=== PATIENT | female | born 1980 | race Caucasian/White ===

== ENCOUNTER 2018-12-14 20:45 | Emergency (ER) | payer BC ==
[~2018-12-14] VITALS: Ht 175.3 cm; Wt 129.3 kg
[2018-12-14] MEDS ORDERED: DIAZEPAM 2 MG TAB PO ONE (21:00)
[2018-12-14] MEDS ORDERED: KETOROLAC TROMETHAMINE 60 MG/2 ML VIAL IM ONE (21:15)
[2018-12-14] MEDS ORDERED: DIAZEPAM 5 MG TAB PO ONE (21:15)
--- NOTE | 2018-12-14 22:12 | Diagnostic Imaging Report ---
EXAMINATION: RIBS BILAT W/CXR INDICATION: Hurt back, pain, cough COMPARISON: None FINDINGS: TUBES and LINES: None. LUNGS: Lungs are well inflated. Mild left basilar atelectasis or scarring. There is no evidence of pneumonia or pulmonary edema. PLEURA: No pleural effusion or pneumothorax. HEART AND MEDIASTINUM: The cardiomediastinal silhouette is unremarkable. BONES AND SOFT TISSUES: No acute osseous lesion. Soft tissues are unremarkable. UPPER ABDOMEN: No free air under the diaphragm. IMPRESSION: No acute thoracic abnormality. Signed by: DR. Artie Childers MD on 12/14/2018 10:08 PM
--- NOTE | 2018-12-14 22:26 | NUR ---
patient informed of risk of toradol and fetus contraindication. patient states she is under murina iud control and is not active sexually, patient states she is not or under risk of being . patient informed in full of risks, patient wants to have toradol i.m. administered.
[2018-12-14] MEDS ORDERED: ROBAXIN-750750 MG PO (23:36)
[2018-12-14] MEDS ORDERED: NAPROXEN250 MG PO (23:37)
[2018-12-14] MEDS ORDERED: ULTRAM50 MG PO (23:37)
[2018-12-15] MEDS ORDERED: LIDOCAINE 5% PATCH TP SCH (00:45)
[2018-12-15] MEDS ORDERED: LIDOCAINE 5% PATCH TP ONE (00:45)
[2018-12-15 01:26] VITALS: BP 122/78
--- NOTE | 2018-12-16 16:01 | NUR ---
ACCESSED PATIENT CHART TO ADDRESS MEDICATION ISSUE RECEIVED CALL FROM [facility] REGARDING PATIENTS NAPROXEN 250 MG PO EVERY 4HRS PRN. SPOKE WITH DR. PERKINS, AND DOSAGE FREQUENCY WAS CHANGED TO EVERY 6 HRS PRN. SPOKE WITH PHARMACIST , ZACHARY
== END 2018-12-15 01:29 | disposition home or self-care (01) ==
LOC: ER 20:45
DX: M54.6 Pain in thoracic spine (principal); S23.41XA Sprain of ribs, initial encounter
CPT/HCPCS: 71111; 93005; 99283; J1885